=== PATIENT | male | born 1980 | race Caucasian/White ===

== ENCOUNTER → 2020-02-11 13:55 | Outpatient (BNVA) | payer MEDICAID, SELFPAY | PROVIDERS: Visit Provider Psychiatry & Neurology Psychiatry | DX: F41.1 Generalized anxiety disorder (principal); F41.0 Panic disorder [episodic paroxysmal anxiety]; F17.200 Nicotine dependence, unspecified, uncomplicated | CPT/HCPCS: 99204 ==

== ENCOUNTER 2020-02-11 20:59 | Emergency (ER) | payer MEDICAID, SELFPAY ==
[2020-02-11 21:07] VITALS: BP 116/72; PULSE 98; RESP 18; TEMP 36.6; O2SAT 94; BMI 40.6
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
[2020-02-11] MEDS: iohexol 300 mg/mL 100 mL Btl IV (21:53)
[2020-02-11 22:19] VITALS: RESP 16
[2020-02-11] MEDS: morphine 4 mg/mL SDV 1 mL IVP (22:19)
[2020-02-11] MEDS: ondansetron 2 mg/ML SDV 2 mL 4 MG IVP (22:19)
[2020-02-11] MEDS: sodium chloride 0.9% 1,000 ML 999 ML IV (22:20)
[2020-02-11 22:22] VITALS: BP 120/76; PULSE 82; RESP 18; O2SAT 93
[2020-02-11 23:01] LABS: Alcohol Level 111 mg/dL (0-10); Anion Gap 16.3 (5-19); Blood Urea Nitrogen 18 mg/dL (6-20); Calcium 9.5 mg/dL (8.5-10.5); Carbon Dioxide 24 mmol/L (22-29); Chloride 104 mmol/L (98-107); Glomerular Filtration Rate 93.9 mL/min (90-130); Glucose 132 mg/dL (65-115); Osmolality Calculated 288 mOsm/kg (285-295); Potassium 4.3 mmol/L (3.5-5.1); Sodium 140 mmol/L (136-145)
[2020-02-11 23:26] VITALS: BP 113/66; PULSE 112; RESP 17; O2SAT 96
[2020-02-11 23:53] VITALS: BP 95/67; PULSE 88; RESP 17; O2SAT 96
[2020-02-12 00:01] VITALS: PULSE 89; RESP 14; O2SAT 97
[2020-02-12 00:19] LABS: Basophils # 0.1 10^3/uL (0.0-0.1); Basophils % 0.5 %; Eosinophils # 0.1 10^3/uL (0.0-0.8); Eosinophils % 0.8 %; Hematocrit 43.6 % (42.0-52.0); Hemoglobin 14.1 g/dL (11.7-16.6); Lymphocytes # 1.5 10^3/uL (0.8-4.8); Lymphocytes % 11.3 %; Mean Corpuscular HGB Conc 32.3 g/dL (30.0-36.0); Mean Corpuscular Volume 99.1 fL (80-94); Mean Platelet Volume 11.1 fL (7.4-10.4); Monocytes # 0.9 10^3/uL (0.2-0.9); Monocytes % 6.8 %; Neutrophils # 10.7 10^3/uL (1.8-7.7); Neutrophils % 80.1 %; Nucleated Red Blood Cells % 0 %; Platelet Count 204 10^3/cmm (130-400); Red Cell Distribution Width 12.8 % (12.1-15.1); White Blood Count 13.3 10^3/uL (4.0-10.0)
[2020-02-12 01:12] VITALS: BP 115/64; PULSE 76; RESP 16; O2SAT 94
[2020-02-12 03:07] VITALS: BP 123/70; PULSE 67; RESP 17; O2SAT 95
[2020-02-12 05:18] VITALS: BP 109/63; PULSE 88; RESP 16; O2SAT 95
--- NOTE | 2020-02-16 10:04 | DCPLANNER ---
Patient had message to speak with patient about getting a primary care physician. corporate relations manager spoke with patient, he stated that he does have a primary care physician.
== END 2020-02-12 05:20 | disposition home or self-care (01) ==
PROVIDERS: Emergency Provider Emergency Medicine
DX: S22.42XA Multiple fractures of ribs, left side, initial encounter for closed fracture (principal); F10.129 Alcohol abuse with intoxication, unspecified; V86.59XA Driver of other special all-terrain or other off-road motor vehicle injured in nontraffic accident, initial encounter; F17.210 Nicotine dependence, cigarettes, uncomplicated; Y90.5 Blood alcohol level of 100-119 mg/100 ml
CPT/HCPCS: 12345; 70450; 71045; 71260; 72125; 74177; 80048; 80307; 85025; 96361; 96374; 96375; 99283; 99284; J2270; J2405; J7030; Q9967